=== PATIENT | female | born 1960 | race Two or more races ===

== ENCOUNTER → 2024-09-24 | Outpatient (CLI) | payer MEDICARE, MEDICAID, SELFPAY ==
--- NOTE | 2024-09-24 09:45 | XR_ITS ---
Examination: Screening digital mammography, bilateral Computer aided detection 3-D breast Tomosynthesis, bilateral Date and time of exam: September 24, 2024 at 0923 hours Compared to mammograms dating to May 06, 2014 Indication: Screening Technique: Nonmagnified MLO, CC views of the breasts to been obtained, reconstructed from 3-D Tomosynthesis images. R2 computer aided detection program utilized for evaluation of suspicious masses and/or abnormal calcifications. 3-D Tomosynthesis images obtained. Findings: Scattered areas of fibroglandular density. Benign calcifications. No interval suspicious masses Impression: BI-RADS category II: Benign Findings. Recommend 1 year follow-up mammogram.
== END | disposition home or self-care (01) ==
PROVIDERS: Referring Provider Nurse Practitioner Primary Care; Visit Provider Nurse Practitioner Primary Care
DX: Z12.31 Encounter for screening mammogram for malignant neoplasm of breast (principal); R92.323 Mammographic fibroglandular density, bilateral breasts; R92.1 Mammographic calcification found on diagnostic imaging of breast
CPT/HCPCS: 77063; 77067

== ENCOUNTER 2025-07-16 11:10 | Day surgery (SDC) | payer MEDICARE, MEDICAID, SELFPAY ==
[2025-07-16] VITALS (15 sets, daily range): BP systolic 113–172; BP diastolic 65–89; PULSE 57–67; RESP 10–23; TEMP 36.5–36.8; O2SAT 94–100; BMI 32.4
[2025-07-16] MEDS: RINGERS LACTATED 1000 ML 1,000 ML 60 ML IV (13:05)
--- NOTE | 2025-07-16 13:57 | SUR.PHASEII ---
[id number] patient arrived to recovery, report received from Sheyla COOLEY
--- NOTE | 2025-07-16 15:03 | SUR.PHASEII ---
1503 patient meets discharge criteria from recovery, awake and alert, breathing unlabored, vital signs stable, denies pain and nausea, voided in the restroom prior to discharge, able to dress herself into her clothing, discharge instructions given to patient and patients daughter with the assistance of the hospital supervisor [facility], patients daughter signed discharge instructions. Patient given all her belongings prior to discharge, transported via wheelchair and left in a private vehicle.
== END 2025-07-16 15:03 | disposition home or self-care (01) ==
PROVIDERS: PCP Nurse Practitioner Primary Care; Referring Provider Specialist; Visit Provider Specialist
PROC: 0DJD8ZZ Inspection of Lower Intestinal Tract, Via Natural or Artificial Opening Endoscopic (ICD-10-PCS; CPT 45378; principal; 2025-07-16 13:00)
DX: Z12.11 Encounter for screening for malignant neoplasm of colon (principal); D12.0 Benign neoplasm of cecum; K64.8 Other hemorrhoids
CPT/HCPCS: 45380; A4649; J1200; J2250; J3010; J7120

== ENCOUNTER → 2025-07-31 | Outpatient (CLI) | payer MEDICARE, MEDICAID, SELFPAY ==
--- NOTE | 2025-07-31 09:52 | XR_ITS ---
Examination: Clavicle, bilateral, 2 views TECHNIQUE: Bilateral clavicles AP, 15 degrees cephalic tube angulation 2 views Exam date and time: July 31, 2025, 10:00 a.m. 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
== END | disposition home or self-care (01) ==
LOC: CDIM 09:39
PROVIDERS: PCP Nurse Practitioner Primary Care; Referring Provider Nurse Practitioner Primary Care; Visit Provider Nurse Practitioner Primary Care
DX: M19.012 Primary osteoarthritis, left shoulder (principal); M19.011 Primary osteoarthritis, right shoulder
CPT/HCPCS: 73000